=== PATIENT | female | born 1985 | race Caucasian/White ===

== ENCOUNTER → 2021-03-07 16:35 | Outpatient (CLI) | payer OTHER, SELFPAY | PROVIDERS: Visit Provider Physician Assistant | DX: R09.81 Nasal congestion (principal) | CPT/HCPCS: 87635; U0005; U0003 ==

== ENCOUNTER → 2021-04-01 | Outpatient (CLI) | payer OTHER, SELFPAY | END | disposition home or self-care (01) | LOC: LABSPEC 16:36 | PROVIDERS: Referring Provider Physician Assistant Surgical; Visit Provider Physician Assistant Surgical | DX: Z20.822 Contact with and (suspected) exposure to COVID-19 (principal) | CPT/HCPCS: 87635; U0005; U0003 ==

== ENCOUNTER 2023-01-28 09:39 | Emergency (ER) | payer MEDICAID, SELFPAY ==
[2023-01-28 09:40] VITALS: BP 115/50; PULSE 94; RESP 18; TEMP 36.8; O2SAT 98; BMI 26.6
--- NOTE | 2023-01-28 09:47 | EDS_ITS ---
HPI History of Present Illness Chief Complaint: Wound Narrative Narrative: 38-year-old female who denies significant past medical history presents with recurrent abscess in her right inguinal area. She states 2 months ago, she had an abscess where her undergarment was rubbing against her leg. She went to her primary care provider, was put on antibiotics, and it may have improved slightly, and it had dried up any drainage, but over time, she states that she feels a hard lump in her right groin that is very irritating. She denies any fevers or chills, no nausea or vomiting, no current drainage from the area. She states that the boil or abscess keeps coming back. It is to the point where she does not wear an undergarment any longer because it irritates the area and causes her pain. [facility] Medical History Acute otitis externa of right ear Home Medications docusate sodium 100 mg capsule (DOK) 100 mg PO BID PRN PRN Constipation #100 caps 04/23/15 [Rx Last Taken Unknown] estradiol 1 mg tablet 2 mg (2 x 1 mg) PO DAILY #100 TABLETS 04/23/15 [Rx Last Taken Unknown] acetaminophen 300 mg-codeine 30 mg tablet 1 - 2 tab (1 - 2 x 300-30 mg) PO Q4H PRN PRN Mod-Severe (Pain Scale 6-10) #20 TABLETS 04/24/15 [Rx Last Taken Unknown] amoxicillin 875 mg-potassium clavulanate 125 mg tablet 1 tab PO Q12H #14 tabs 03/07/21 [Rx Last Taken Unknown] Allergy/AdvReac Type Severity Reaction Status Date / Time No Known Allergies Allergy Verified 01/28/23 09:39 Family History Other Colon cancer Ramos syndrome Surgical History H/O: hysterectomy Social History Smoking Status: Current every day smoker ROS ROS ED ROS Narrative Constitutional: No fever, no chills. HEENT: No sore throat. No neck pain. No loss of vision. No rhinorrhea. Cardiovascular: No chest pain. No palpitations. No pedal edema. Respiratory: No cough, no shortness of breath. Abdominal: No abdominal pain. No nausea. No vomiting. Genitourinary: No dysuria. No hematuria. Musculoskeletal: No myalgias. No arthralgias. Neurologic: No headaches. No dizziness. No lightheadedness. Skin: No rash. No change in color. Boil in right inguinal area, recurrent, painful to touch, no current drainage. Psychiatric: No depression. No anxiety. EXAM Physical Exam Narrative Exam Narrative: Afebrile. Vital signs noted. HEENT: Normocephalic. Atraumatic. PERRL, EOMI. Neck soft and supple. No point tenderness or step off. Cardiovascular: Regular rate and rhythm. No murmurs, rubs, or gallops appreciated. Respiratory: No tachypnea. Lungs clear to auscultation bilaterally. Gastrointestinal: Abdomen soft, nontender, with normoactive bowel sounds. No rebound or guarding. Neurological: Awake. Alert. Nonfocal, nonlateralizing. Skin: No rash. Normal color. No pallor. Chaperoned examination reveals Musculoskeletal: No pedal edema. Full range of motion extremities. Const Vital Signs: 01/28/23 09:40 Temperature 98.2 F Temperature Source Temporal Pulse Rate 94 Respiratory Rate 18 Blood Pressure 115/50 L Blood Pressure Mean 71 Pulse Ox 98 Oxygen Delivery Method Room Air Discharge Plan Triage Chief Complaint: Wound ED Provider: Davie Esquivel Dx/Rx/DC Orders Prescriptions: No Action amoxicillin-pot clavulanate 875-125 mg tablet 1 tab PO Q12H Qty: 14 0RF estradiol 1 MG tablet 2 mg PO DAILY Qty: 100 4RF docusate sodium [DOK] 100 MG capsule 100 mg PO BID PRN PRN (Reason: Constipation) Qty: 100 0RF acetaminophen-codeine 1 TABLET tablet 1 - 2 tab PO Q4H PRN PRN (Reason: Mod-Severe (Pain Scale 6-10)) Qty: 20 0RF
--- NOTE | 2023-01-28 09:47 | EX.ED.DYSGE1 ---
HPI History of Present Illness Chief Complaint: Wound Narrative Narrative: 38-year-old female who denies significant past medical history presents with recurrent abscess in her right inguinal area. She states 2 months ago, she had an abscess where her undergarment was rubbing against her leg. She went to her primary care provider, was put on antibiotics, and it may have improved slightly, and it had dried up any drainage, but over time, she states that she feels a hard lump in her right groin that is very irritating. She denies any fevers or chills, no nausea or vomiting, no current drainage from the area. She states that the boil or abscess keeps coming back. It is to the point where she does not wear an undergarment any longer because it irritates the area and causes her pain. [facility] Medical History Acute otitis externa of right ear Home Medications sulfamethoxazole 800 mg-trimethoprim 160 mg tablet (Bactrim DS) 1 tab PO BID #14 tabs 01/28/23 [Rx Last Taken Unknown] Allergy/AdvReac Type Severity Reaction Status Date / Time No Known Allergies Allergy Verified 01/28/23 09:39 Family History Other Colon cancer Ramos syndrome Surgical History H/O: hysterectomy Social History Smoking Status: Current every day smoker tobacco type: cigarettes ROS ROS ED ROS Narrative Constitutional: No fever, no chills. HEENT: No sore throat. No neck pain. No loss of vision. No rhinorrhea. Cardiovascular: No chest pain. No palpitations. No pedal edema. Respiratory: No cough, no shortness of breath. Abdominal: No abdominal pain. No nausea. No vomiting. Genitourinary: No dysuria. No hematuria. Musculoskeletal: No myalgias. No arthralgias. Neurologic: No headaches. No dizziness. No lightheadedness. Skin: No rash. No change in color. Boil in right inguinal area, recurrent, painful to touch, no current drainage. Psychiatric: No depression. No anxiety. EXAM Physical Exam Narrative Exam Narrative: Afebrile. Vital signs noted. HEENT: Normocephalic. Atraumatic. PERRL, EOMI. Neck soft and supple. No point tenderness or step off. Cardiovascular: Regular rate and rhythm. No murmurs, rubs, or gallops appreciated. Respiratory: No tachypnea. Lungs clear to auscultation bilaterally. Gastrointestinal: Abdomen soft, nontender, with normoactive bowel sounds. No rebound or guarding. Neurological: Awake. Alert. Nonfocal, nonlateralizing. Skin: No rash. Normal color. No pallor. Chaperoned examination reveals more linear, tender area in the crease of her right thigh with minimal fluctuance and mild erythema. Musculoskeletal: No pedal edema. Full range of motion extremities. Const Vital Signs: 01/28/23 09:40 Temperature 98.2 F Temperature Source Temporal Pulse Rate 94 Respiratory Rate 18 Blood Pressure 115/50 L Blood Pressure Mean 71 Pulse Ox 98 Oxygen Delivery Method Room Air MDM MDM MDM Narrative Medical decision making narrative: I discussed with the patient incision and drainage and the possibility that this may be more of a cellulitic problem. She would like to proceed with incision and drainage. She was informed of the risk of open wound, scarring, continued infection, and the return of blood only. She acknowledges an understanding. I do feel that she would need antibiotics regardless as the area is mildly cellulitic. She was given ibuprofen 600 mg for analgesia prior to the procedure. She was also given her first dose of Bactrim here in the emergency department. See procedure note for details. At this point in time, as it had already been draining, she will still be placed on Bactrim for her cellulitis. She has an appointment with her primary care provider tomorrow. She can follow-up for a wound recheck. Return instructions were reviewed. I do not feel that she requires any imaging or laboratory work, nor do I feel that she requires observation. Disposition is discharged home in stable condition. Procedures Other Procedures Procedure(s): Incision and drainage: Chaperoned incision and drainage was performed after consent obtained. Upon reexamination, there is no drainage from the area and less fluctuance. Povidine iodine was used as local cleansing agent. Lidocaine 1% approximately 2 to 3 mL was used as a local anesthetic. Stab incision was made using a #11 blade. There is only serosanguineous return, no purulent drainage as this had already been noted prior to further incision and drainage. Area was probed and deloculated using hemostats. Irrigation was performed with normal saline. I do not feel that this abscess is deep enough to hold any packing. Patient tolerated procedure well. Discharge Plan Triage Chief Complaint: Wound ED Provider: Davie Esquivel Dx/Rx/DC Orders Clinical Impression: Cellulitis, Abscess of groin, right Instructions: ED Abscess Incision And Drainage, ED Cellulitis Prescriptions: New sulfamethoxazole-trimethoprim [Bactrim DS] 800-160 mg tablet 1 tab PO BID Qty: 14 0RF Primary Care Provider: Thao Young Activity Restrictions/Additional Instructions: Follow-up with your primary care provider tomorrow as scheduled for a wound recheck. Take all of the antibiotics as directed. Apply warm compresses to the area 2-3 times a day for approximately 10 to 15 minutes. Disposition Disposition: Home, Self Care
[2023-01-28] MEDS: Smz/Tmp Ds Tablet 1 TABLET PO (10:09)
[2023-01-28] MEDS: Lidocaine 1% (20 ml mdv) 20 ML Vial INFILT (10:09)
[2023-01-28] MEDS: Ibuprofen 600 MG Tablet PO (10:09)
== END 2023-01-28 10:31 | disposition home or self-care (01) ==
PROVIDERS: Emergency Provider Emergency Medicine; PCP Nurse Practitioner Family; Visit Provider Emergency Medicine
DX: L03.314 Cellulitis of groin (principal); L02.214 Cutaneous abscess of groin; F17.210 Nicotine dependence, cigarettes, uncomplicated
CPT/HCPCS: 10060; 99283

== ENCOUNTER → 2024-10-05 | Outpatient (CLI) | payer OTHER, SELFPAY | END | disposition home or self-care (01) | LOC: LAB 14:17 | PROVIDERS: Referring Provider Nurse Practitioner Acute Care; Visit Provider Nurse Practitioner Acute Care | DX: Z00.00 Encounter for general adult medical examination without abnormal findings (principal) ==

== ENCOUNTER 2024-10-10 09:50 | Outpatient (CLI) | payer OTHER, SELFPAY ==
[2024-10-11 12:08] LABS: H. PYLORI STOOL AG Negative (Negative)
== END 2024-10-10 23:59 | disposition home or self-care (01) ==
LOC: LABSPEC 09:52
PROVIDERS: Referring Provider Nurse Practitioner Acute Care; Visit Provider Nurse Practitioner Acute Care
DX: K21.9 Gastro-esophageal reflux disease without esophagitis (principal); K31.A0 Gastric intestinal metaplasia, unspecified; Z80.0 Family history of malignant neoplasm of digestive organs
CPT/HCPCS: 87338